=== PATIENT | male | born 1985 | race Caucasian/White ===

== ENCOUNTER 2018-08-24 09:45 | Emergency (ER) | payer MEDICAID, SELFPAY ==
[2018-08-24 09:47] VITALS: BP 159/94; PULSE 106; RESP 17; TEMP 36.6; O2SAT 93; BMI 61.3
--- NOTE | 2018-08-24 10:03 | ED.DCSUM_ITS ---
- ER Visit Summary Date of Service: 08/24/18 Chief Complaint: [] Left lateral lower leg pain for 4 days History of Present Illness: The patient is a 32 M [] indicates he really has no past history other than asthma that is well controlled he indicates he basically has had a pain to the left lateral leg he points just above the left lateral malleolus, this pain is worse when he wakes in the morning gets better actually as he moves around during the day he has had no trauma no swelling no numbness weakness or paresthesias he has no upper extremity pain, specifically he has no knee thigh hip pain no back pain he did not injure himself anyway he has not been ill in any way. Today he went to a local urgent care center he pointed to the area just above his left lateral malleolus complain of discomfort here by his history of the caretakers there told him to come to the emergency department to get an ultrasound for DVT, the patient reports no history of DVT he denies any swelling but rather just a focal pain to this area Physical Examination: [] 159/80 General, no distress resting comfortably HEENT is generally unremarkable The neck is supple no adenopathy Cardiovascular, regular rate and rhythm Lungs, clear bilateral Abdomen, soft nontender Extremities, no clubbing cyanosis or edema, the left lower leg he has no pain over the calf no pain over the alcocer or tib-fib the left ankle is unremarkable for range of motion the foot unremarkable there is normal pulsation normal cap refill skin is intact he complains of pain about 2 or 3 cm above the left lateral malleolus this area is soft there is no crepitance subcu air mass or signs of infection or anything else acute he has no pain medially over the veins and he has no history of DVT or trauma Neurologic, awake alert answering questions appropriately moving all 4 extremities Test Results: [] Emergency Department Course and Treatment: [] Explained to the patient the exact etiology of the above is unclear the DVT in that part of his body with no prior history would be uncommon and unlikely additionally the duplex techs are not available at this time, I also discussed x-ray but he did not wish to pursue that, at this time given all the above he will be given a requisition for outpatient duplex scan to be done tomorrow and to follow-up with his family doctor return for change in symptoms Treatment Plan: [] Disposition: [] Home stable Impression: [] Left lateral lower tib-fib pain etiology unclear This note was generated with [employer] dictation software. It may contain incorrect words, spelling, and punctuation that were not noted in review of the chart prior to signing ED Disposition - Plan for ED Patient: Chief Complaint: Lower Extremity Injury Referrals: Evin Ann MD [Primary Care Provider] -
--- NOTE | 2018-08-24 10:03 | ED.DEP ---
ED Disposition - Plan for ED Patient: Chief Complaint: Lower Extremity Injury Instructions: ED Contusion Lower Ext Referrals: Evin Ann MD [Primary Care Provider] - Additional Instructions: Please follow-up as an outpatient for duplex scanning call for time follow-up with your family doctor tomorrow or the next day
[2018-08-24 10:14] VITALS: BP 161/97; PULSE 103; RESP 18; O2SAT 93
[2018-08-24 10:17] VITALS: BP 161/97; PULSE 103; RESP 18
== END 2018-08-24 10:19 | disposition home or self-care (01) ==
LOC: ED 10:01
PROVIDERS: Emergency Provider Emergency Medicine; Family Provider Family Medicine; PCP Family Medicine
DX: M79.662 Pain in left lower leg (principal); J45.909 Unspecified asthma, uncomplicated
CPT/HCPCS: 99282

== ENCOUNTER → 2018-09-02 12:00 | Outpatient (CLI) | payer MEDICAID, SELFPAY ==
[2018-08-24 09:47] VITALS: BMI 61.3
--- NOTE | 2018-09-02 12:04 | VDLE_ITS ---
Reason For Study: LEG PAIN Procedure LEFT Exam performed in department. GSV is normal. CFV is compressible, spontaneous, phasic, competent, and demonstrates normal augmentation. FV is compressible, spontaneous, phasic, competent and demonstrates normal augmentation. POP V is compressible, spontaneous, phasic, competent and demonstrates normal augmentation. T/P Trunk is compressible. PTV is compressible. LT PerV is compressible. <> Interpretation Summary Deep veins of the left lower extremity are patent and compressible segmentally. There is no evidence of left lower extremity deep vein thrombosis. Valvular competence appears intact within the proximal deep venous system on the left . The left greater saphenous vein appears patent and compressible segmentally. Ordering Physician: Senait Aryaa Referring Physician: MD Marissa Evin Performed By: Lalita Aaron RVT
--- OUTSIDE RECORDS SUMMARY | 2018-10-15 03:42 | XMS RPT_ITS ---
:1985 Author Organization OH[facility] Care Team Providers Name Role Phone MARYBETH DURAN Attending Unavailable MARYBETH DURAN Referring Unavailable JUANITA NEGRON (MARBLE CUTTER OPERATOR) Attending Unavailable MARYBETH DURAN Referring Unavailable GOLDY VINCENT Referring Unavailable Kelli Araya Attending Unavailable Marybeth Duran Primary Care Unavailable Kelli Araya Attending Unavailable Kelli Araya Referring Unavailable Marybeth Duran Primary Care Unavailable PROBLEMS PROBLEMS DATE TYPE CONDITION / CODE ATTENDING STATUS SOURCE 07/30/2018 Active Other intermediate NA Active [facility] (current) drug [facility] [place] therapy / Repository Z79.899(ICD-10) 01/12/2013 Active Essential NA Active [facility] (primary) [place] hypertension / Repository I10(ICD-10) PROCEDURES PROCEDURES No Procedure Records FoundRESULTS RESULTS VENOUS DUPLEX LOWER Observed: 09/04/2018 Status: F Source: [place] EXTREMITY 1:05 PM [facility] REPOSITORY [facility] Cardiovascular Services [address] [place] [address] Venous Duplex US, Unilateral 09/02/18 1206 MR#: [id number] Acct: [id number] Name: TATA CARDENAS Rep #: [id number] : 1985 32 From: Casey Villalobos MD Attending Dr: MD Araya Sharabeel Status: REG CLI Ordering Dr: Kelli Araya MD Date: 09/02/18 Location: CVS Sex: M C Admitted: Reason For Study: LEG PAIN Procedure LEFT Exam performed in department. GSV is normal. CFV is compressible, spontaneous, phasic, competent, and demonstrates normal augmentation. FV is compressible, spontaneous, phasic, competent and demonstrates normal augmentation. POP V is compressible, spontaneous, phasic, competent and demonstrates normal augmentation. T/P Trunk is compressible. PTV is compressible. LT PerV is compressible. <> Interpretation Summary Deep veins of the left lower extremity are patent and compressible segmentally. There is no evidence of left lower extremity deep vein thrombosis. Valvular competence appears intact within the proximal deep venous system on the left . The left greater saphenous vein appears patent and compressible segmentally. Ordering Physician: Senait Araya Referring Physician: MD Marybeth Duran Performed By: Lalita Aaron RVT 09/04/18 1304 Date Casey Villalobos MD CC: MD Senait Araya; Marybeth Duran MD Date Dictated: 09/02/18 1206 Date Transcribed: 09/04/18 1304 Gas Engine Performance Engineer: Signed EMERGENCY DEPARTMENT Observed: 08/24/2018 Status: F Source: [place] SUMMARY 3:44 PM [facility] REPOSITORY [facility] Medical Records Department [address] [place] [address] Emergency Department Summary 08/24/18 1001 MR#: [id number] Acct: [id number] Name: TATA CARDENAS Rep #: [id number] : 1985 32 From: Kelli Araya MD PCP: Marybeth Duran MD Status: DEP ER - ER Visit Summary Date of Service: 08/24/18 Chief Complaint: [] Left lateral lower leg pain for 4 days History of Present Illness: The patient is a 32 M [] indicates he really has no past history other than asthma that is well controlled he indicates he basically has had a pain to the left lateral leg he points just above the left lateral malleolus, this pain is worse when he wakes in the morning gets better actually as he moves around during the day he has had no trauma no swelling no numbness weakness or paresthesias he has no upper extremity pain, specifically he has no knee thigh hip pain no back pain he did not injure himself anyway he has not been ill in any way. Today he went to a local urgent care center he pointed to the area just above his left lateral malleolus complain of discomfort here by his history of the caretakers there told him to come to the emergency department to get an ultrasound for DVT, the patient reports no history of DVT he denies any swelling but rather just a focal pain to this area Physical Examination: [] 159/80 General, no distress resting comfortably HEENT is generally unremarkable The neck is supple no adenopathy Cardiovascular, regular rate and rhythm Lungs, clear bilateral Abdomen, soft nontender Extremities, no clubbing cyanosis or edema, the left lower leg he has no pain over the calf no pain over the alcocer or tib-fib the left ankle is unremarkable for range of motion the foot unremarkable there is normal pulsation normal cap refill skin is intact he complains of pain about 2 or 3 cm above the left lateral malleolus this area is soft there is no crepitance subcu air mass or signs of infection or anything else acute he has no pain medially over the veins and he has no history of DVT or trauma Neurologic, awake alert answering questions appropriately moving all 4 extremities Test Results: [] Emergency Department Course and Treatment: [] Explained to the patient the exact etiology of the above is unclear the DVT in that part of his body with no prior history would be uncommon and unlikely additionally the duplex techs are not available at this time, I also discussed x-ray but he did not wish to pursue that, at this time given all the above he will be given a requisition for outpatient duplex scan to be done tomorrow and to follow-up with his family doctor return for change in symptoms Treatment Plan: [] Disposition: [] Home stable Impression: [] Left lateral lower tib-fib pain etiology unclear This note was generated with [employer]Vista dictation software. It may contain incorrect words, spelling, and punctuation that were not noted in review of the chart prior to signing ED Disposition - Plan for ED Patient: Chief Complaint: Lower Extremity Injury Referrals: Marybeth Duran MD [Primary Care Provider] - What to do if you have Problems For any increased pain, shortness of breath, bleeding, nausea or vomiting, chest pain, or any unexpected problems, contact your Primary Care Provider. Call [facility] ([phone]) or report to the closest Emergency Room. Call 911 if necessary. 08/24/18 1544 <Electronically signed by Kelli Araya MD> Date Kelli Araya MD Cosigner Signature (If Indicated): Date CC: Marybeth Duran MD DISCHARGE INSTRUCTION Observed: 08/24/2018 Status: F Source: [place] 10:04 AM [facility] REPOSITORY [facility] Medical Records Department [address] [place] [address] Discharge Instruction 08/24/18 1003 MR#: [id number] Acct: [id number] Name: TATA CARDENAS Rep #: [id number] : 1985 32 From: Kelli Araya MD PCP: Marybeth Duran MD Status: REG ER ED Disposition - Plan for ED Patient: Chief Complaint: Lower Extremity Injury Instructions: ED Contusion Lower Ext Referrals: Marybeth Duran MD [Primary Care Provider] - Additional Instructions: Please follow-up as an outpatient for duplex scanning call for time follow-up with your family doctor tomorrow or the next day What to do if you have Problems For any increased pain, shortness of breath, bleeding, nausea or vomiting, chest pain, or any unexpected problems, contact your Primary Care Provider. Call [facility] ([phone]) or report to the closest Emergency Room. Call 911 if necessary. 08/24/18 1004 <Electronically signed by Kelli Araya MD> Date Kelli Araya MD Cosigner Signature (If Indicated): Date CC: Marybeth Duran MD CNCO Observed: 07/31/2018 Status: COMPLETED Source: [place] 12:00 AM [facility] REPOSITORY Letter Text [address] [address] July 31, 2018 Tata Cardenas [address] [facility] [address] [place] [address] Dear Sabrina Cardenas, Attempts have been made to reach you by phone, no VM has been set up. Below is a message from the provider concerning your lab results and instructions Please inform patient that his glucose, [place] lites and kidney function were normal. Continue with follow-up in 6 months with labs prior. ? Juanita Negron APRN.MARBLE CUTTER OPERATOR ? Sincerely, [facility] BASIC METABOLIC PANL Collected: 07/30/2018 Status: F Source: [place] 1:48 PM [facility] REPOSITORY TYPE CODE TESTS RESULT OUT OF REFERENCE UNITS RANGE LAB GLU 74-99 mg/dL Glucose 86 Result Comment: The [place] Diabetes Association (ADA) provides guidance for cutoff values for fasting glucose and random glucose. The ADA defines fasting as no caloric intake for at least 8 hours. Fas ting plasma glucose results between 100 to 125 mg/dL indicate increased risk for diabetes (prediabetes). Fasting plasma glucose results greater than or equal to 126 mg/dL meet the criteria for diagnosis of diabetes. In the absence of unequivocal hyperglycemia, results should be confirmed by repeat testing. In a patient with classic symptoms of hyperglycemia or hyperglycemic crisis, random plasma glucose results greater than or equal to 200 mg/dL meet the criteria for diagnosis of diabetes. Reference: Standards of Medical Care in Diabetes 2016, [place] [employer] Association. Diabetes Care. 2016.39(Suppl 1). LAB BUN 9-24 mg/dL BUN 11 LAB CRET 0.73-1.22 mg/dL Creatinine 0.79 LAB NA 136-144 mmol/L Sodium 138 LAB K 3.7-5.1 mmol/L Potassium 3.7 LAB CL 97-105 mmol/L Chloride 98 LAB CO2 22-30 mmol/L CO2 26 LAB AGAP 9-18 mmol/L Anion Gap 14 LAB CA 8.5-10.2 mg/dL Calcium, Total 8.6 LAB GFRAA eGFR- Amer. >60 LAB GFRNAA . eGFR-All Other Races >60 Result Comment: eGFR (Estimated GFR) Units of measure: mL/min/1.73 meters squared eGFR is derived from the reexpressed MDRD Study equation using the following parameters: serum creatinine, age, gender and race. The creatinine assay has been calibrated to be traceable to IDMS. An eGFR <60 mL/min/1.73m2 for >3 months is consistent with chronic kidney disease. Refer to KDOQI guidelines for clinical interpretation. In patients with unstable renal function, e.g. those with acute kidney injury, the eGFR may not accurately reflect actual GFR. Performed By: #### BMP #### [facility] [address], [place] [address] PROGRESS Observed: 07/30/2018 Status: COMPLETED Source: [place] 1:16 PM [facility] REPOSITORY HNO ID: [id number] Author: Juanita Negron Service: (none) Author Type: Nurse Practitioner Type: Progress Notes Filed: 07/30/2018 1:41 PM Note Text: Chief Complaint Patient presents with: 6 Month Exam: headache a few days ago - throbbing - right side above eye - last ing 2 or 3 minutes the first time - but most th etime a shooting pain lasting only a few seconds HPI Tata Cardenas is a 32 year old male who presents here today for Chronic Medical Conditions and Acute Complaints. Patient presents the office today for follow-up on dysthymia and hypertension. Had a headache a few days ago but it went away. does not have any symptoms of a headache at this time. States that his mother and other family members have had history of a brain aneurysm in the past. States that this makes him nervous at times. States that the headache lasted just a few minutes and then went away. Had no nausea, photophobia, phonophobia during this episode. Did not take any medication for it because it went away so quickly. HTN: Patient is compliant with meds Yes Monitors bp at home: No. He is interested in a a blood pressure cuff for home readings. Denies side effects: Yes. Chest pain: No. Dyspnea: No. Edema: No. Palpitations: No. Syncope: No. Headache: No. Dizziness: No. Gets exercise at work. Does not really watch his diet. States that he works at [employer]. Asthma: Taking inhalers as prescribed. Has had to increase his use of albuterol recently with the cold air starting. Also takes the Claritin for allergies. Depression: Taking Prozac 40 mg daily. States that it is for depression. Controls his anxiety also. Keeps his temper controlled at work. Has chronic area on his right elbow that he applies kenalog cream to it. States that it will get better and then get worse. Past medical history, appointments, medications, allergies reviewed. Previous Medical History PAST MEDICAL HISTORY Diagnosis Date - Allergic rhinitis, cause unspecified Allergic rhinitis - Dysthymic disorder Depression (non-psychotic) - Unspecified asthma(493.90) Previous Surgical History PAST SURGICAL HISTORY Procedure Laterality Date - PAST SURGICAL HISTORY OF ingrown toenail Family History FAMILY HISTORY Problem Relation Age of Onset - Diabetes Maternal Grandmother - Alcohol/Drug Mother - Heart Mother 50 CHF - COPD Mother - Hypertension Maternal Grandfather Patient Allergies ALLERGIES Allergen Reactions - Erythromycin GI Upset - Lisinopril Other: See Comments Altered taste - Naproxen (Bulk) Other: See Comments causes nose bleeds Current Medications Current Outpatient Prescriptions on File Prior to Visit: hydroCHLOROthiazide (HYDRODIURIL, ESIDRIX) 25 mg tablet Take 1 tablet by mouth once daily. For BP FLUoxetine HCl (PROZAC) 40 mg capsule Take 1 capsule by mouth once daily. losartan (COZAAR) 50 mg tablet Take 1 tablet by mouth once daily. For BP amLODIPine (NORVASC) 10 mg tablet Take 1 tablet by mouth once daily. For BP montelukast (SINGULAIR) 10 mg tablet Take 1 tablet by mouth daily at bedtime. loratadine (CLARITIN) 10 mg tablet Take 1 tablet by mouth once daily. albuterol HFA (VENTOLIN HFA) 90 mcg/actuation inhaler Inhale 2 Puffs as instructed every 4 hours as needed for Wheezing/Shortness of Breath. BREO ELLIPTA 100-25 mcg/dose inhaler Inhale 1 Inhalation as instructed once daily. Blood Pressure Test Kit-Large (QUICK RESPONSE BP MONITOR) kit Large adult cuff. (I10) Essential hypertension, benign triamcinolone acetonide (KENALOG) 0.1 % cream Apply 1 application to affected area twice daily. No current facility-administered medications on file prior to visit. Social History Social History Marital status: Single Spouse name: Years of education: Number of children: Social History Main Topics Smoking status: Never Smoker Smokeless tobacco: Never Used Alcohol use: No Drug use: No REVIEW OF SYSTEMS: as above ? Reviewed relevant PMHx, PSHx, Social Hx, current medications and allergies. EXAM: BP 124/78 Pulse 78 Temp 36.3 ?C (97.4 ?F) (Tympanic) Wt (!) 194.6 kg (429 lb) SpO2 98% BMI 63.35 kg/m? General Appearance: Well appearing, alert, in no acute distress, well-hydrated, well nourished. and Morbidly obese. Skin: right elbow has a small approximate 1 x 1 cm area of scaly, dry skin with some redness. Head: Normocephalic, no masses, lesions, tenderness or abnormalities. Eyes: Anicteric sclera. Pupils are equally round and reactive to light. Extraocular movements are intact. . Ears: External ears normal, canals clear. Nose/Sinuses: Nares normal, septum midline, mucosa normal, no drainage or sinus tenderness. Oropharynx: Lips, mucosa, and tongue normal, teeth and gums normal, oropharynx normal. Lungs: Lungs clear to auscultation. No wheezing, rhonchi, rales. Heart: RRR without murmur, gallop, or rubs. No ectopy. Extremities: No deformities, edema.. Neurologic: Gait normal. Reflexes normal and symmetric. Sensation grossly intact.. Health Maintenance List BP CONTROLLED (<130/80) due on 2001 DTAP,TDAP,TD(1 - Tdap) due on 2002 STEROID INHALER ADHERENCE due on 08/07/2018 ANNUAL PCP TEAM CHRONIC DISEASE VISIT due on 01/28/2019 INFLUENZA Completed Data reviewed Component Latest Ref Rng AND Units 12/01/2015 01/28/2018 Protein, Total 6.3 - 8.0 g/dL 7.5 Albumin 3.9 - 4.9 g/dL 4.0 Calcium 8.5 - 10.2 mg/dL 8.5 9.1 Bilirubin, Total 0.2 - 1.3 mg/dL 0.6 Alkaline Phosphatase 36 - 108 U/L 102 AST 14 - 40 U/L 21 Glucose 74 - 99 mg/dL 95 82 BUN 9 - 24 mg/dL 13 9 Creatinine 0.73 - 1.22 mg/dL 0.80 0.88 Sodium 136 - 144 mmol/L 141 141 Potassium 3.7 - 5.1 mmol/L 3.9 4.1 Chloride 97 - 105 mmol/L 103 102 CO2 22 - 30 mmol/L 27 23 Anion Gap 9 - 18 mmol/L 11 16 ALT 10 - 54 U/L 18 eGFR- >60 >60 eGFR-All Other Races . >60 >60 Cholesterol, Total <200 mg/dL 165 Triglyceride <150 mg/dL 163 (H) HDL Cholesterol >39 mg/dL 29 (L) LDL Cholesterol <100 mg/dL 103 (H) Non HDL Cholesterol <130 mg/dL 136 (H) Fasting Time hrs 12 VLDL Cholesterol <30 mg/dL 33 (H) TC:HDL Ratio <5.10 5.69 (H) LDL:HDL Ratio <2.54 3.55 (H) ASSESSMENT/PLAN: 1. Essential hypertension, benign - ICD9: 401.1, ICD10: I10 (primary diagnosis) - good control - Continue current medication(s) - Recommended regular aerobic exercise. - Recommend home blood pressure monitoring, to bring results in on next visit - Goal of BP <130/80 - BLOOD PRESSURE TEST KIT-LARGE CUFF - BASIC METABOLIC PNL 2. Chronic depression - ICD9: 311, ICD10: F32.9 - stable, continue fluoxetine 40 mg daily. 3. Chronic obstructive airway disease with asthma (HCC) - ICD9: 493.20, ICD10: J44.9 - stable continue0 with current inhalers. 4. Eczema, unspecified type - ICD9: 692.9, ICD10: L30.9 - continue with trazodone cream, advised use of lotions after showers for hydration of skin - TRIAMCINOLONE ACETONIDE 0.1 % TOPICAL CREAM 5. Nonintractable episodic headache, unspecified headache type - ICD9: 784.0, ICD10: R51 - provided reassurance that this headache is typical and not associated with an aneurysm. Patient's neurological exam was normal today in the office. Advised adequate hydration, Tylenol ibuprofen for symptoms. Discussed need to follow-up closely if severity or frequency increases. BMP today, follow-up in 6 months, follow-up sooner if needed. ANGEL GomezOV Observed: 07/30/2018 Status: COMPLETED Source: [place] 1:00 PM [facility] REPOSITORY Office Visit (FAMPWS) TATA CARDENAS ([id number]) 1985 M IPA Date Time Provider Department 07/30/18 1:00 PM JUANITA NEGRON ([facility] During your visit today, we recorded the following information about you: Temperature Pulse Blood pressure Weight 97.4 degrees 78/minute 124/78 194.6 kg Juanita Negron APRN.CNP 07/30/2018 1:41 PM Signed Chief Complaint Patient presents with: 6 Month Exam: headache a few days ago - throbbing - right side above eye - last ing 2 or 3 minutes the first time - but most th etime a shooting pain lasting only a few seconds HPI Tata Cardenas is a 32 year old male who presents here today for Chronic Medical Conditions and Acute Complaints. Patient presents the office today for follow-up on dysthymia and hypertension. Had a headache a few days ago but it went away. does not have any symptoms of a headache at this time. States that his mother and other family members have had history of a brain aneurysm in the past. States that this makes him nervous at times. States that the headache lasted just a few minutes and then went away. Had no nausea, photophobia, phonophobia during this episode. Did not take any medication for it because it went away so quickly. HTN: Patient is compliant with meds Yes Monitors bp at home: No. He is interested in a a blood pressure cuff for home readings. Denies side effects: Yes. Chest pain: No. Dyspnea: No. Edema: No. Palpitations: No. Syncope: No. Headache: No. Dizziness: No. Gets exercise at work. Does not really watch his diet. States that he works at [employer]. Asthma: Taking inhalers as prescribed. Has had to increase his use of albuterol recently with the cold air starting. Also takes the Claritin for allergies. Depression: Taking Prozac 40 mg daily. States that it is for depression. Controls his anxiety also. Keeps his temper controlled at work. Has chronic area on his right elbow that he applies kenalog cream to it. States that it will get better and then get worse. Past medical history, appointments, medications, allergies reviewed. Previous Medical History PAST MEDICAL HISTORY Diagnosis Date - Allergic rhinitis, cause unspecified Allergic rhinitis - Dysthymic disorder Depression (non-psychotic) - Unspecified asthma(493.90) Previous Surgical History PAST SURGICAL HISTORY Procedure Laterality Date - PAST SURGICAL HISTORY OF ingrown toenail Family History FAMILY HISTORY Problem Relation Age of Onset - Diabetes Maternal Grandmother - Alcohol/Drug Mother - Heart Mother 50 CHF - COPD Mother - Hypertension Maternal Grandfather Patient Allergies ALLERGIES Allergen Reactions - Erythromycin GI Upset - Lisinopril Other: See Comments Altered taste - Naproxen (Bulk) Other: See Comments causes nose bleeds Current Medications Current Outpatient Prescriptions on File Prior to Visit: hydroCHLOROthiazide (HYDRODIURIL, ESIDRIX) 25 mg tablet Take 1 tablet by mouth once daily. For BP FLUoxetine HCl (PROZAC) 40 mg capsule Take 1 capsule by mouth once daily. losartan (COZAAR) 50 mg tablet Take 1 tablet by mouth once daily. For BP amLODIPine (NORVASC) 10 mg tablet Take 1 tablet by mouth once daily. For BP montelukast (SINGULAIR) 10 mg tablet Take 1 tablet by mouth daily at bedtime. loratadine (CLARITIN) 10 mg tablet Take 1 tablet by mouth once daily. albuterol HFA (VENTOLIN HFA) 90 mcg/actuation inhaler Inhale 2 Puffs as instructed every 4 hours as needed for Wheezing/Shortness of Breath. BREO ELLIPTA 100-25 mcg/dose inhaler Inhale 1 Inhalation as instructed once daily. Blood Pressure Test Kit-Large (QUICK RESPONSE BP MONITOR) kit Large adult cuff. (I10) Essential hypertension, benign triamcinolone acetonide (KENALOG) 0.1 % cream Apply 1 application to affected area twice daily. No current facility-administered medications on file prior to visit. Social History Social History Marital status: Single Spouse name: Years of education: Number of children: Social History Main Topics Smoking status: Never Smoker Smokeless tobacco: Never Used Alcohol use: No Drug use: No REVIEW OF SYSTEMS: as above ? Reviewed relevant PMHx, PSHx, Social Hx, current medications and allergies. EXAM: BP 124/78 Pulse 78 Temp 36.3 ?C (97.4 ?F) (Tympanic) Wt (!) 194.6 kg (429 lb) SpO2 98% BMI 63.35 kg/m? General Appearance: Well appearing, alert, in no acute distress, well-hydrated, well nourished. and Morbidly obese. Skin: right elbow has a small approximate 1 x 1 cm area of scaly, dry skin with some redness. Head: Normocephalic, no masses, lesions, tenderness or abnormalities. Eyes: Anicteric sclera. Pupils are equally round and reactive to light. Extraocular movements are intact. . Ears: External ears normal, canals clear. Nose/Sinuses: Nares normal, septum midline, mucosa normal, no drainage or sinus tenderness. Oropharynx: Lips, mucosa, and tongue normal, teeth and gums normal, oropharynx normal. Lungs: Lungs clear to auscultation. No wheezing, rhonchi, rales. Heart: RRR without murmur, gallop, or rubs. No ectopy. Extremities: No deformities, edema.. Neurologic: Gait normal. Reflexes normal and symmetric. Sensation grossly intact.. Health Maintenance List BP CONTROLLED (<130/80) due on 2001 DTAP,TDAP,TD(1 - Tdap) due on 2002 STEROID INHALER ADHERENCE due on 08/07/2018 ANNUAL PCP TEAM CHRONIC DISEASE VISIT due on 01/28/2019 INFLUENZA Completed Data reviewed Component Latest Ref Rng AND Units 12/01/2015 01/28/2018 Protein, Total 6.3 - 8.0 g/dL 7.5 Albumin 3.9 - 4.9 g/dL 4.0 Calcium 8.5 - 10.2 mg/dL 8.5 9.1 Bilirubin, Total 0.2 - 1.3 mg/dL 0.6 Alkaline Phosphatase 36 - 108 U/L 102 AST 14 - 40 U/L 21 Glucose 74 - 99 mg/dL 95 82 BUN 9 - 24 mg/dL 13 9 Creatinine 0.73 - 1.22 mg/dL 0.80 0.88 Sodium 136 - 144 mmol/L 141 141 Potassium 3.7 - 5.1 mmol/L 3.9 4.1 Chloride 97 - 105 mmol/L 103 102 CO2 22 - 30 mmol/L 27 23 Anion Gap 9 - 18 mmol/L 11 16 ALT 10 - 54 U/L 18 eGFR- >60 >60 eGFR-All Other Races . >60 >60 Cholesterol, Total <200 mg/dL 165 Triglyceride <150 mg/dL 163 (H) HDL Cholesterol >39 mg/dL 29 (L) LDL Cholesterol <100 mg/dL 103 (H) Non HDL Cholesterol <130 mg/dL 136 (H) Fasting Time hrs 12 VLDL Cholesterol <30 mg/dL 33 (H) TC:HDL Ratio <5.10 5.69 (H) LDL:HDL Ratio <2.54 3.55 (H) ASSESSMENT/PLAN: 1. Essential hypertension, benign - ICD9: 401.1, ICD10: I10 (primary diagnosis) - good control - Continue current medication(s) - Recommended regular aerobic exercise. - Recommend home blood pressure monitoring, to bring results in on next visit - Goal of BP <130/80 - BLOOD PRESSURE TEST KIT-LARGE CUFF - BASIC METABOLIC PNL 2. Chronic depression - ICD9: 311, ICD10: F32.9 - stable, continue fluoxetine 40 mg daily. 3. Chronic obstructive airway disease with asthma (HCC) - ICD9: 493.20, ICD10: J44.9 - stable continue0 with current inhalers. 4. Eczema, unspecified type - ICD9: 692.9, ICD10: L30.9 - continue with trazodone cream, advised use of lotions after showers for hydration of skin - TRIAMCINOLONE ACETONIDE 0.1 % TOPICAL CREAM 5. Nonintractable episodic headache, unspecified headache type - ICD9: 784.0, ICD10: R51 - provided reassurance that this headache is typical and not associated with an aneurysm. Patient's neurological exam was normal today in the office. Advised adequate hydration, Tylenol ibuprofen for symptoms. Discussed need to follow-up closely if severity or frequency increases. BMP today, follow-up in 6 months, follow-up sooner if needed. Juanita Negron APRN.MARBLE CUTTER OPERATOR Referring Provider: MARYBETH DURAN [[id number]] Allergies As of Date: 07/30/2018 Noted Allergy Reaction ERYTHROMYCIN 2006 8 - GI Upset LISINOPRIL 06/28/2014 14 - Other: See Comments Comments: Altered taste NAPROXEN (BULK) 10/17/2011 14 - Other: See Comments Comments: causes nose bleeds Date Reviewed: 07/30/2018 Reviewed by: Alondra Callejas Collection Systems Technician - Fully Assessed Reason for Visit: 6 Month Exam [189] Cmt: headache a few days ago - throbbing - right side above eye - last ing 2 or 3 minutes the first time - but most th etime a shooting pain lasting only a few seconds Reason For Visit History Recorded Primary Visit Diagnosis:Essential hypertension, benign [I10] Other Visit Diagnoses:Chronic depression [F32.9] Chronic obstructive airway disease with asthma (HCC) [J44.9] Eczema, unspecified type [L30.9] Nonintractable episodic headache, unspecified headache type [R51] Order(s):Blood Pressure Test Kit-Large (QUICK RESPONSE BP MONITOR) kitLarge adult cuff. (I10) Essential hypertension, benignDisp: 1 KitRfl: 0 triamcinolone acetonide (KENALOG) 0.1 % creamApply 1 application to affected area twice daily.Disp: 30 gRfl: 3 BASIC METABOLIC PNL [SQBMP] Order #: [id number] FUTURE Prescriptions as of 07/30/2018 Sig: BLOOD PRESSURE TEST KIT-LARGE* Large adult cuff. (I10) Esse* TRIAMCINOLONE ACETONIDE 0.1 %* Apply 1 application to affect* HYDROCHLOROTHIAZIDE 25 MG TAB* Take 1 tablet by mouth once d* FLUOXETINE 40 MG CAPSULE Take 1 capsule by mouth once * LOSARTAN 50 MG TABLET Take 1 tablet by mouth once d* AMLODIPINE 10 MG TABLET Take 1 tablet by mouth once d* MONTELUKAST 10 MG TABLET Take 1 tablet by mouth daily * LORATADINE 10 MG TABLET Take 1 tablet by mouth once d* ALBUTEROL SULFATE HFA 90 MCG/* Inhale 2 Puffs as instructed * BREO ELLIPTA 100 MCG-25 MCG/D* Inhale 1 Inhalation as instru* Problem List As Of Date 07/30/2018 Noted Resolved Chronic depression [F32.9] INVALID FOR* Chronic obstructive airway disease with asthma *INVALID FOR* ALLERGIC RHINITIS NOS [J30.9] INVALID FOR* Essential hypertension, benign [I10] INVALID FOR* Morbid obesity [E66.01] INVALID FOR* Prescriptions ordered this encounter Disp Refills Start End BLOOD PRESSURE TEST KIT-LARGE CUFF 1 Kit 0 07/30/2018 Class: Print RX Sig: Large adult cuff. (I10) Essential hypertension, benign TRIAMCINOLONE ACETONIDE 0.1 % TOPICA* 30 g 3 07/30/2018 Route: TOPICAL Sig: Apply 1 application to affected area twice daily. Medications Discontinued During This Encounter Blood Pressure Test Kit-Large (QUICK* 1 Kit 0 01/28/2018 07/30/2018 Class: Print RX Sig: Large adult cuff. (I10) Essential hypertension, benign Disc: Reason for discontinue is not on file. triamcinolone acetonide (KENALOG) 0.* 30 g 3 05/21/2016 07/30/2018 Route: TOPICAL Sig: Apply 1 application to affected area twice daily. Disc: Reason for discontinue is not on file. Disposition: Return in about 6 months (around 01/28/2019) for HTN, Depression f/u. Follow-up and Disposition History Recorded Encounter Status:Closed by JUANITA NEGRON CNP on 07/30/18 COMP METABOLIC PANEL Collected: 01/28/2018 Status: F Source: [place] 4:28 PM [facility] REPOS[facility] TYPE CODE TESTS RESULT OUT OF REFERENCE UNITS RANGE LAB TP 6.3-8.0 g/dL Protein, Total 7.5 LAB ALB 3.9-4.9 g/dL Albumin 4.0 LAB CA 8.5-10.2 mg/dL Calcium, Total 9.1 LAB TBIL 0.2-1.3 mg/dL Bilirubin, Total 0.6 LAB ALKP 36-108 U/L Alkaline Phosphatase 102 LAB AST 14-40 U/L AST 21 LAB GLU 74-99 mg/dL Glucose 82 Result Comment: The [place] Diabetes Association (ADA) provides guidance for cutoff values for fasting glucose and random glucose. The ADA defines fasting as no caloric intake for at least 8 hours. Fas ting plasma glucose results between 100 to 125 mg/dL indicate increased risk for diabetes (prediabetes). Fasting plasma glucose results greater than or equal to 126 mg/dL meet the criteria for diagnosis of diabetes. In the absence of unequivocal hyperglycemia, results should be confirmed by repeat testing. In a patient with classic symptoms of hyperglycemia or hyperglycemic crisis, random plasma glucose results greater than or equal to 200 mg/dL meet the criteria for diagnosis of diabetes. Reference: Standards of Medical Care in Diabetes 2016, [place] [employer] Association. Diabetes Care. 2016.39(Suppl 1). LAB BUN 9-24 mg/dL BUN 9 LAB CRET 0.73-1.22 mg/dL Creatinine 0.88 LAB NA 136-144 mmol/L Sodium 141 LAB K 3.7-5.1 mmol/L Potassium 4.1 LAB CL 97-105 mmol/L Chloride 102 LAB CO2 22-30 mmol/L CO2 23 LAB AGAP 9-18 mmol/L Anion Gap 16 LAB ALT 10-54 U/L ALT 18 LAB GFRAA eGFR- Amer. >60 LAB GFRNAA . eGFR-All Other Races >60 Result Comment: eGFR (Estimated GFR) Units of measure: mL/min/1.73 meters squared eGFR is derived from the reexpressed MDRD Study equation using the following parameters: serum creatinine, age, gender and race. The creatinine assay has been calibrated to be traceable to IDMS. An eGFR <60 mL/min/1.73m2 for >3 months is consistent with chronic kidney disease. Refer to KDOQI guidelines for clinical interpretation. In patients with unstable renal function, e.g. those with acute kidney injury, the eGFR may not accurately reflect actual GFR. Performed By: #### CMP, LIPB #### [facility] [address] [address] LIPID PANEL, BASIC Collected: 01/28/2018 Status: F Source: [place] 4:28 PM [facility] REPOSITORY TYPE CODE TESTS RESULT OUT OF REFERENCE UNITS RANGE LAB CHOL <200 mg/dL Cholesterol 165 Result Comment: <200 mg/dL, Desirable 200-239 mg/dL, Borderline high >239 mg/dL, High LAB TRIGLY <150 mg/dL Triglyceride High 163 Result Comment: <150 mg/dL, Normal 150-199 mg/dL, Borderline high 200-499 mg/dL, High >499 mg/dL, Very high LAB HDL >39 mg/dL HDL-Cholesterol Low 29 Result Comment: 40-59 mg/dL, Acceptable >59 mg/dL, High: Negative risk factor for coronary heart disease <40 mg/dL, Low: Positive risk factor for coronary heart disease LAB LDL <100 mg/dL LDL-Cholesterol High 103 Result Comment: <100 mg/dL, Optimal 100-129 mg/dL, Near optimal/above optimal 130-159 mg/dL, Borderline high 160-189 mg/dL, High >189 mg/dL, Very high Secondary prevention optimal LDL Cholesterol levels are recommended to be < 70 mg/dL LAB NONHDL <130 mg/dL Non HDL High Cholesterol 136 Result Comment: <130 mg/dL, Optimal 130-159 mg/dL, Near optimal/above optimal 160-189 mg/dL, Borderline high 190-219 mg/dL, High >219 mg/dL, Very high Secondary prevention optimal non HDL Cholesterol levels are recommended to be < 100 mg/dL LAB FT hrs Fasting Time 12 LAB VLDL <30 mg/dL High VLDL Cholesterol 33 LAB TCHDL <5.10 High TC:HDL Ratio 5.69 LAB LDLHDL <2.54 High LDL:HDL Ratio 3.55 Result Comment: Reference: 1. National Cholesterol Education Program ATP III Guideline At-A-Glance Quick Desk Reference: National Heart, Lung, and Blood [place]. National Institutes of Health. 2001: NIH Publication No. 01-3305. 2. An International Atherosclerosis Society position paper: global recommendations for the management of dyslipidemia: executive summary, Atherosclerosis. 2014: 232(2):410-413. Performed By: #### CMP, LIPB #### [facility] [address] [place], [place] [address] CNOV Observed: 01/28/2018 Status: COMPLETED Source: [place] 4:20 PM [facility] REPOSITORY Office Visit (FAMPWS) TATA CARDENAS ([id number]) 1985 M IPA Date Time Provider Department 01/28/18 4:20 PM MARYBETH DURAN FAMPWS During your visit today, we recorded the following information about you: Pulse Respiration Blood pressure Weight 64/minute 18/minute 124/80 184.6 kg Height 1.753 m Marybeth Duran MD 01/29/2018 4:52 PM Signed Chief Complaint Patient presents with: Establish Care HPI Tata Cardenas is a 32 year old male who presents here today for est care. Former pt of Dr. Vincent. Non smoker, has been exposed to second hand smoke. Pt mother was a smoker. Has 1 younger brother, takes medication to prevent blindness. No bowel, GI, or urinary concerns. Does not watch diet or exercise. Pt does drink pop at work, denies drinking much pop at home, mostly water. 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 HTN: does not check BP at home. Denies any chest pains, dizziness, or SOB. Is taking Norvasc 10 mg daily, Losartan 50 mg daily. He takes the HCTZ 25 mg in the morning, but admits that he forgets to take that most days. Depression: feels this is controlled on the Prozac 40 mg daily. COPD with asthma: is taking Breo Ellipta inhaler when he remembers. Always has the albuterol inhaler on hand if needed. Denies needing to use that as often as he had to. He stated he used to take it 2-3 times a week to maybe one a week or not at all. Takes Singulair 10 mg daily and Claritin 10 mg daily. Is not sure what triggers the asthma to flare up, smoke does flare it up and perfumes, air fresheners. Spot on right elbow that he uses Kenalog cream for which helps. Headaches: localized to different locations on the head, only last about 10 minutes then resolve. Very random. Family hx of brain aneurysms: uncle, great aunt, and 2nd cousin, all on mothers side. None in either parent that he is aware of. Mother at 50 years old of CHF and COPD. Hip: left hip soreness and stiffness that has been on going for several months off and on, started after sleeping wrong. Certain activities or movements bring on the pain. He has not been doing anything for the pain. No heat or ice. Does take Naproxen PRN. Past medical history, appointments, medications, allergies reviewed. Previous Medical History PAST MEDICAL HISTORY Diagnosis Date - Allergic rhinitis, cause unspecified Allergic rhinitis - Dysthymic disorder Depression (non-psychotic) - Unspecified asthma(493.90) Previous Surgical History PAST SURGICAL HISTORY Procedure Laterality Date - PAST SURGICAL HISTORY OF ingrown toenail Family History FAMILY HISTORY Problem Relation Age of Onset - Diabetes Maternal Grandmother - Alcohol/Drug Mother - Hypertension Maternal Grandfather - Heart Mother CHF Patient Allergies ALLERGIES Allergen Reactions - Erythromycin GI Upset - Lisinopril Other: See Comments Altered taste - Naproxen (Bulk) Other: See Comments causes nose bleeds Current Medications Current Outpatient Prescriptions on File Prior to Visit: amLODIPine (NORVASC) 10 mg tablet Take 1 tablet by mouth once daily. For BP FLUoxetine HCl (PROZAC) 40 mg capsule Take 1 capsule by mouth once daily. montelukast (SINGULAIR) 10 mg tablet Take 1 tablet by mouth daily at bedtime. losartan (COZAAR) 50 mg tablet Take 1 tablet by mouth once daily. For BP loratadine (CLARITIN) 10 mg tablet Take 1 tablet by mouth once daily. fluticasone-vilanterol (BREO ELLIPTA) 100-25 mcg/dose inhaler Inhale 1 Inhalation as instructed once daily. Blood Pressure Test Kit-Large (QUICK RESPONSE BP MONITOR) kit Large adult cuff. (I10) Essential hypertension, benign hydroCHLOROthiazide (HYDRODIURIL, ESIDRIX) 25 mg tablet Take 1 tablet by mouth once daily. For BP albuterol HFA (VENTOLIN HFA) 90 mcg/actuation inhaler Inhale 2 Puffs as instructed every 4 hours as needed for Wheezing/Shortness of Breath. triamcinolone acetonide (KENALOG) 0.1 % cream Apply 1 application to affected area twice daily. No current facility-administered medications on file prior to visit. Social History Social History Marital status: Single Spouse name: Years of education: Number of children: Social History Main Topics Smoking status: Never Smoker Smokeless status: Never Used Alcohol use: No Drug use: No EXAM: BP 124/80 Pulse 64 Resp 18 Ht 175.3 cm (5' 9ANDquot;) Wt (!) 184.6 kg (407 lb) BMI 60.1 kg/m2 General Appearance: Well appearing, alert, in no acute distress, well-hydrated, well nourished., Morbidly obese. Skin: scaly, inflamed spot on right elbow. Neck: Supple, no adenopathy; thyroid symmetric, normal size Lungs: Lungs clear to auscultation. No wheezing, rhonchi, rales. Heart: RRR without murmur, gallop, or rubs. No ectopy. Health Maintenance List TETANUS due on 1994 INFLUENZA(Season Ended) due on 06/07/2018 Data reviewed None ASSESSMENT/PLAN: 1. Wellness examination - ICD9: V70.0, ICD10: Z00.00 (primary diagnosis) - Recommended regular aerobic exercise. - Discussed need and benefit for weight loss. BMI 60.10 kg/(m2) - Follow up for annual exam in one year. 2. Essential hypertension, benign - ICD9: 401.1, ICD10: I10 - good control - Continue current medication(s) - Recommended regular aerobic exercise. - Recommend home blood pressure monitoring, to bring results in on next visit - Goal of BP ANDlt;140/90 3. Morbid obesity (HCC) - ICD9: 278.01, ICD10: E66.01 Recommend eating healthy and exercise 4. Chronic depression - ICD9: 311, ICD10: F32.9 Continue current medications. 5. Chronic obstructive airway disease with asthma (HCC) - ICD9: 493.20, ICD10: J44.9 Mild intermittent Asthma stable - Continue current meds - Avoidance of triggers recommended Follow up in 6 months. Will call with results of blood work. Marybeth Duran MD The documentation for this note was completed by Dory Velázquez Ma acting as scribe for Marybeth Duran MD. January 28, 2018 4:05 PM. Referring Provider: SELF [[id number]] Allergies As of Date: 01/28/2018 Noted Allergy Reaction ERYTHROMYCIN 2006 8 - GI Upset LISINOPRIL 06/28/2014 14 - Other: See Comments Comments: Altered taste NAPROXEN (BULK) 10/17/2011 14 - Other: See Comments Comments: causes nose bleeds Date Reviewed: 01/28/2018 Reviewed by: Dory Velázquez Ma - Fully Assessed Reason for Visit: Establish Care [42] Primary Visit Diagnosis:Essential hypertension, benign [I10] Other Visit Diagnoses:Morbid obesity (HCC) [E66.01] Chronic depression [F32.9] Chronic obstructive airway disease with asthma (HCC) [J44.9] Order(s):Blood Pressure Test Kit-Large (QUICK RESPONSE BP MONITOR) kitLarge adult cuff. (I10) Essential hypertension, benignDisp: 1 KitRfl: 0 LIPID PANEL BASIC [SQLIPB] Order #: [id number] FUTURE COMP METABOLIC PANEL [SQCMP] Order #: [id number] FUTURE Prescriptions as of 01/28/2018 Sig: BLOOD PRESSURE TEST KIT-LARGE* Large adult cuff. (I10) Esse* AMLODIPINE 10 MG TABLET Take 1 tablet by mouth once d* FLUOXETINE 40 MG CAPSULE Take 1 capsule by mouth once * MONTELUKAST 10 MG TABLET Take 1 tablet by mouth daily * LOSARTAN 50 MG TABLET Take 1 tablet by mouth once d* LORATADINE 10 MG TABLET Take 1 tablet by mouth once d* FLUTICASONE 100 MCG-VILANTERO* Inhale 1 Inhalation as instru* HYDROCHLOROTHIAZIDE 25 MG TAB* Take 1 tablet by mouth once d* ALBUTEROL SULFATE HFA 90 MCG/* Inhale 2 Puffs as instructed * TRIAMCINOLONE ACETONIDE 0.1 %* Apply 1 application to affect* Problem List As Of Date 01/28/2018 Noted Resolved Chronic depression [F32.9] INVALID FOR* Chronic obstructive airway disease with asthma *INVALID FOR* ALLERGIC RHINITIS NOS [J30.9] INVALID FOR* Essential hypertension, benign [I10] INVALID FOR* Morbid obesity [E66.01] INVALID FOR* Prescriptions ordered this encounter Disp Refills Start End BLOOD PRESSURE TEST KIT-LARGE CUFF 1 Kit 0 01/28/2018 Class: Print RX Sig: Large adult cuff. (I10) Essential hypertension, benign Medications Discontinued During This Encounter Blood Pressure Test Kit-Large (QUICK* 1 Kit 0 01/17/2017 01/28/2018 Class: Print RX Sig: Large adult cuff. (I10) Essential hypertension, benign Disc: Reason for discontinue is not on file. Disposition: Return in about 6 months (around 07/30/2018). Follow-up and Disposition History Recorded Encounter Status:Closed by MARYBETH DURAN MD on 01/29/18 PROGRESS Observed: 01/28/2018 Status: COMPLETED Source: [place] 3:56 PM [facility] REPOSITORY HNO ID: [id number] Author: Marybeth Duran Service: (none) Author Type: Physician Type: Progress Notes Filed: 01/29/2018 4:52 PM Note Text: Chief Complaint Patient presents with: Establish Care HPI Tata Cardenas is a 32 year old male who presents here today for est care. Former pt of Dr. Vincent. Non smoker, has been exposed to second hand smoke. Pt mother was a smoker. Has 1 younger brother, takes medication to prevent blindness. No bowel, GI, or urinary concerns. Does not watch diet or exercise. Pt does drink pop at work, denies drinking much pop at home, mostly water. 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 HTN: does not check BP at home. Denies any chest pains, dizziness, or SOB. Is taking Norvasc 10 mg daily, Losartan 50 mg daily. He takes the HCTZ 25 mg in the morning, but admits that he forgets to take that most days. Depression: feels this is controlled on the Prozac 40 mg daily. COPD with asthma: is taking Breo Ellipta inhaler when he remembers. Always has the albuterol inhaler on hand if needed. Denies needing to use that as often as he had to. He stated he used to take it 2-3 times a week to maybe one a week or not at all. Takes Singulair 10 mg daily and Claritin 10 mg daily. Is not sure what triggers the asthma to flare up, smoke does flare it up and perfumes, air fresheners. Spot on right elbow that he uses Kenalog cream for which helps. Headaches: localized to different locations on the head, only last about 10 minutes then resolve. Very random. Family hx of brain aneurysms: uncle, great aunt, and 2nd cousin, all on mothers side. None in either parent that he is aware of. Mother at 50 years old of CHF and COPD. Hip: left hip soreness and stiffness that has been on going for several months off and on, started after sleeping wrong. Certain activities or movements bring on the pain. He has not been doing anything for the pain. No heat or ice. Does take Naproxen PRN. Past medical history, appointments, medications, allergies reviewed. Previous Medical History PAST MEDICAL HISTORY Diagnosis Date - Allergic rhinitis, cause unspecified Allergic rhinitis - Dysthymic disorder Depression (non-psychotic) - Unspecified asthma(493.90) Previous Surgical History PAST SURGICAL HISTORY Procedure Laterality Date - PAST SURGICAL HISTORY OF ingrown toenail Family History FAMILY HISTORY Problem Relation Age of Onset - Diabetes Maternal Grandmother - Alcohol/Drug Mother - Hypertension Maternal Grandfather - Heart Mother CHF Patient Allergies ALLERGIES Allergen Reactions - Erythromycin GI Upset - Lisinopril Other: See Comments Altered taste - Naproxen (Bulk) Other: See Comments causes nose bleeds Current Medications Current Outpatient Prescriptions on File Prior to Visit: amLODIPine (NORVASC) 10 mg tablet Take 1 tablet by mouth once daily. For BP FLUoxetine HCl (PROZAC) 40 mg capsule Take 1 capsule by mouth once daily. montelukast (SINGULAIR) 10 mg tablet Take 1 tablet by mouth daily at bedtime. losartan (COZAAR) 50 mg tablet Take 1 tablet by mouth once daily. For BP loratadine (CLARITIN) 10 mg tablet Take 1 tablet by mouth once daily. fluticasone-vilanterol (BREO ELLIPTA) 100-25 mcg/dose inhaler Inhale 1 Inhalation as instructed once daily. Blood Pressure Test Kit-Large (QUICK RESPONSE BP MONITOR) kit Large adult cuff. (I10) Essential hypertension, benign hydroCHLOROthiazide (HYDRODIURIL, ESIDRIX) 25 mg tablet Take 1 tablet by mouth once daily. For BP albuterol HFA (VENTOLIN HFA) 90 mcg/actuation inhaler Inhale 2 Puffs as instructed every 4 hours as needed for Wheezing/Shortness of Breath. triamcinolone acetonide (KENALOG) 0.1 % cream Apply 1 application to affected area twice daily. No current facility-administered medications on file prior to visit. Social History Social History Marital status: Single Spouse name: Years of education: Number of children: Social History Main Topics Smoking status: Never Smoker Smokeless status: Never Used Alcohol use: No Drug use: No EXAM: BP 124/80 Pulse 64 Resp 18 Ht 175.3 cm (5' 9) Wt (!) 184.6 kg (407 lb) BMI 60.1 kg/m2 General Appearance: Well appearing, alert, in no acute distress, well-hydrated, well nourished., Morbidly obese. Skin: scaly, inflamed spot on right elbow. Neck: Supple, no adenopathy; thyroid symmetric, normal size Lungs: Lungs clear to auscultation. No wheezing, rhonchi, rales. Heart: RRR without murmur, gallop, or rubs. No ectopy. Health Maintenance List TETANUS due on 1994 INFLUENZA(Season Ended) due on 06/07/2018 Data reviewed None ASSESSMENT/PLAN: 1. Wellness examination - ICD9: V70.0, ICD10: Z00.00 (primary diagnosis) - Recommended regular aerobic exercise. - Discussed need and benefit for weight loss. BMI 60.10 kg/(m2) - Follow up for annual exam in one year. 2. Essential hypertension, benign - ICD9: 401.1, ICD10: I10 - good control - Continue current medication(s) - Recommended regular aerobic exercise. - Recommend home blood pressure monitoring, to bring results in on next visit - Goal of BP <140/90 3. Morbid obesity (HCC) - ICD9: 278.01, ICD10: E66.01 Recommend eating healthy and exercise 4. Chronic depression - ICD9: 311, ICD10: F32.9 Continue current medications. 5. Chronic obstructive airway disease with asthma (HCC) - ICD9: 493.20, ICD10: J44.9 Mild intermittent Asthma stable - Continue current meds - Avoidance of triggers recommended Follow up in 6 months. Will call with results of blood work. Marybeth Duran MD The documentation for this note was completed by Dory Velázquez Ma acting as scribe for Marybeth Duran MD. January 28, 2018 4:05 PM. CNPTOUTREACH Observed: 01/14/2018 Status: COMPLETED Source: [place] 12:00 AM [facility] REPOSITORY Patient Outreach ([facility]) TATA CARDENAS ([id number]) 1985 M IPA Date Time Provider Department 01/14/[address] [facility] During your visit today, we recorded the following information about you: Allergies As of Date: 01/14/2018 Noted Allergy Reaction ERYTHROMYCIN 2006 8 - GI Upset LISINOPRIL 06/28/2014 14 - Other: See Comments Comments: Altered taste NAPROXEN (BULK) 10/17/2011 14 - Other: See Comments Comments: causes nose bleeds Date Reviewed: 09/22/2017 Reviewed by: Nusrat Arrington Collection Systems Technician - Fully Assessed Visit Diagnosis:Medication management [Z79.899] Order(s):BASIC METABOLIC PNL [SQBMP] Order #: [id number] FUTURE Prescriptions as of 01/14/2018 Sig: X AMLODIPINE 10 MG TABLET Take 1 tablet by mouth once d* X FLUOXETINE 40 MG CAPSULE Take 1 capsule by mouth once * X MONTELUKAST 10 MG TABLET Take 1 tablet by mouth daily * X LOSARTAN 50 MG TABLET Take 1 tablet by mouth once d* X LORATADINE 10 MG TABLET Take 1 tablet by mouth once d* X FLUTICASONE 100 MCG-VILANTERO* Inhale 1 Inhalation as instru* X BLOOD PRESSURE TEST KIT-LARGE* Large adult cuff. (I10) Esse* X HYDROCHLOROTHIAZIDE 25 MG TAB* Take 1 tablet by mouth once d* X ALBUTEROL SULFATE HFA 90 MCG/* Inhale 2 Puffs as instructed * TRIAMCINOLONE ACETONIDE 0.1 %* Apply 1 application to affect* Problem List As Of Date 01/14/2018 Noted Resolved Chronic depression [F32.9] INVALID FOR* Chronic obstructive airway disease with asthma *INVALID FOR* ALLERGIC RHINITIS NOS [J30.9] INVALID FOR* Essential hypertension, benign [I10] INVALID FOR* Morbid obesity [E66.01] INVALID FOR* Encounter Status:Closed by Tagged, PRODUSER on 07/18/18 ALLERGIES ALLERGIES DATE TYPE / CODE NAME / CODE REACTION SEVERITY SOURCE 08/24/2018 Drug naproxen/[id number] Other Unknown [place] Allergy/416 (RXNORM) Community [id number]([facility] ED [place]) Repository 08/24/2018 Drug erythromycin Upset Stomach Unknown [place] Allergy/416 base/[id number](RXN Community [id number]([facility] ED [place]) Repository 06/28/2014 DRUG LISINOPRIL OTHER: SEE C [facility] INGREDI/[address] [place] [id number](SNOM Repository ED [place]) 10/17/2011 DRUG/[id number] NAPROXEN (BULK) OTHER: SEE C [facility] 003([facility] [place]) Repository 2006 DRUG/[id number] ERYTHROMYCIN GI UPSET [facility] 003([facility] [place]) Repository ENCOUNTERS ENCOUNTERS ADMIT/DISCHARGE ACCOUNT ADMITTING ENCOUNTER LOCATION SOURCE NUMBER CLASS 09/02/2018 [id number] Ambulatory [facility] ing:[facility] Repository 08/24/2018/08/24/20 [id number] Emergency [address] ing:ED Repository 08/24/2018/08/24/20 [id number] Ambulatory [address] Repository 07/30/2018/07/30/20 [id number] Ambulatory [address] Repository 07/30/2018/08/01/20 [id number] Ambulatory [address] Repository 01/28/2018 [id number] Ambulatory [facility] Repository 01/28/2018/01/31/20 [id number] Ambulatory [address] Repository PAYERS PAYERS ENCOUNTER GUARANTOR PAYER SUBSCRIBER SOURCE 09/02/2018 TATA Rodriguez Primary TATA HANSEN E VINE Insurance:CARESOURCEP RONALDDOB: [facility] Number: [id number] [address]Tns: ([phone]) [id number] Repository [phone] () Date:2018-09-02[address]ATTN: [place] [address]VH: 09/02/2018 Secondary NOT GIVENUNK [place] Insurance:SELF PAY [facility] Number: Effective Repository Date:2018-09-02 08/24/2018 TATA Rodriguez Primary TATA THOMAS [facility] [place] [place]: [facility] Number: [id number] [id number]: [phone] [id number] Repository [phone] () Date:2018-08-24[address]ATTN: [place] [address]QX: 08/24/2018 Secondary NOT GIVENDANIELLA Armenta Insurance:SELF PAY [facility] Number: Effective Repository Date:2018-08-24
== END ==
PROVIDERS: Family Provider Family Medicine; PCP Family Medicine; Referring Provider Emergency Medicine; Visit Provider Emergency Medicine
DX: M79.605 Pain in left leg (principal)
CPT/HCPCS: 93971

== ENCOUNTER 2019-12-22 09:22 | Emergency (ER) | payer MEDICAID, SELFPAY ==
[2019-12-22 09:22] VITALS: BP 116/75; PULSE 120; RESP 24; TEMP 38.1; O2SAT 96; BMI 66.2
[2019-12-22 09:34] VITALS: PULSE 122; O2SAT 97
--- NOTE | 2019-12-22 09:42 | ED.VISSUMM ---
- ER Visit Summary Date of Service: 12/22/19 Chief Complaint: Fever History of Present Illness: The patient is a 34 M who presents with fever that began last night. Patient states his fever was up to 102.9 when he woke up today. Patient admits to a slight cough. Patient recently had influenza A. Patient states this resolved approximately 2 weeks ago. Patient admits to some slight shortness of breath. Patient admits to nausea but denies any vomiting. Patient denies any chest pain. Patient admits to general myalgias. Patient also admits to mild headache. Patient states nothing makes his fever better or worse. Patient states he called the nursing line for his insurance and was told to come to the emergency department. Physical Examination: Vital signs are stable except for tachycardia of 122 and a mild tachypnea of 24. Patient is febrile here with a temperature of 100.5. Patient is in no acute distress. Oral mucosa is pink and moist. Oropharynx is clear. Neck is supple. Trachea is midline. There is no JVD. Heart was regular rate and rhythm. Lungs are clear but diminished bilaterally. Abdomen is soft. Bowel sounds are normal. There is no tenderness. Cranial nerves II through XII are intact. There are no focal motor or sensory deficits noted. Test Results: PA and lateral chest x-ray shows a focal infiltrate in the posterior medial segment of the right lower lobe. This was interpreted by the radiologist and reviewed by myself. CBC shows a slight leukocytosis of 12.9. Comprehensive metabolic profile was within normal limits. Emergency Department Course and Treatment: Patient was advised to drink plenty of fluids and get plenty of rest. Patient was instructed to stay home. Patient was given a prescription for Levaquin. Patient was instructed to follow-up with his primary care physician in 5 to 7 days. Patient understood and was agreeable with the plan. All questions were answered. Disposition: Discharge home Impression: Pneumonia This note was generated with [employer] dictation software. It may contain incorrect words, spelling, and punctuation that were not noted in review of the chart prior to signing ED Disposition - Plan for ED Patient: Disposition: Home or Assisted Living Diagnosis: Pneumonia Instructions: PNEUMONIA (Adult) Prescriptions: Levofloxacin [Levaquin] 750 mg PO DAILY #6 tab Prescription Printed Referrals: Evin Ann MD [Primary Care Provider] - 5-7 Days
[2019-12-22] MEDS: 0.9% Normal Saline 1,000 ML 1000 ML IV (09:53)
[2019-12-22] MEDS: Acetaminophen 500 MG Tablet 1000 MG PO (09:53)
[2019-12-22 10:06] LABS: Absolute Lymphocyte Count 1.06 X10^3/uL (0.83-4.51); Absolute Neutrophil Count 10.9 X10^3/uL (2.0-7.7); Basophil# 0.03 X10^3/uL; Basophil% 0.2 % (0-1); Eosinophil# 0.05 X10^3/uL; Eosinophils% 0.4 % (0-5); Hematocrit 37.3 % (40-54); Hemoglobin 11.7 g/dL (13.0-16.5); Lymphocyte # 1.06 X10^3/ul (4.0); Lymphocyte % 8.2 % (19-41); Mean Corp Hgb Conc 31.4 g/dL (32-36); Mean Corpuscular Hgb 26.1 pg (27.0-32.0); Mean Corpuscular Volume 83.3 fL (80-94); Monocyte# 0.77 X10^3/uL; NRBC Flagged by Analyzer 0 % (0-5); Neutrophil % 84.4 % (47-70); Platelet Count 212 K/mm3 (150-450); RBC Distribution Width CV 15.6 % (11.6-14.6); RBC Distribution Width SD 47.2 fl (35.1-43.9); Red Blood Count 4.48 M/mm3 (4.6-6.2); White Blood Count 12.9 K/mm3 (4.4-11.0)
--- NOTE | 2019-12-22 10:10 | RAD_ITS ---
STUDY: X-RAY CHEST REASON FOR EXAM: Male, 34 years old. FEVER, SOB, DX W/ INFLUENZA FEW WKS AGO TECHNIQUE: PA and lateral views of the chest. COMPARISON: None. FINDINGS: Focal infiltrate in the posterior medial segment of the right lower lobe. Scattered calcified granulomas. There is no demonstrated pleural abnormality. Normal size heart. Normal mediastinum and minnie. Normal visualized pulmonary arteries. Normal visualized aortic arch and descending thoracic aorta. Normal visualized thoracic spine. Normal visualized ribs, clavicles, and shoulders. There is no demonstrated abnormality of the visualized soft tissue structures of the upper abdomen. RAD/Chest PA and Lateral IMPRESSION: Focal infiltrate in the posterior medial segment of the right lower lobe. Electronically Signed: Vidal Guadalupe, at 10:39 EDT , Service support ,
[2019-12-22 10:26] LABS: ALB/GLOB Ratio 0.9 RATIO (0.9-2.4); AST(SGOT) 18 U/L (15-37); Alanine Aminotransfer ALT/SGPT 33 U/L (16-61); Albumin, Serum 3.2 g/dL (3.2-5.0); Alkaline Phosphatase 87 U/L (45-117); Anion Gap 7 (5-15); BUN 8 mg/dL (7-18); BUN/Creat Ratio 7.6 RATIO (10-20); Calcium,Total 8.7 mg/dL (8.5-10.1); Chloride 102 mmol/L (98-107); Creatinine, Serum 1.05 mg/dL (0.70-1.30); EST Glomerular Filtration Rate 85 mL/min (>60); Est Glom Filt Rate - Afr Amer 103 mL/min (>60); Estimated Creatinine Clearance 100.42 ml/min; Globulin 3.7 g/dL (2.2-4.2); Glucose 146 mg/dL (74-106); Potassium 3.3 mmol/L (3.5-5.1); Protein, Total 6.9 g/dL (6.4-8.2); Sodium Level 138 mmol/L (136-145)
[2019-12-22 11:15] VITALS: BP 126/77; PULSE 108; RESP 16; TEMP 37.4; O2SAT 94
[2019-12-22] MEDS: levoFLOXacin 750 MG Tablet PO (11:18)
== END 2019-12-22 11:26 | disposition home or self-care (01) ==
PROVIDERS: Emergency Provider Emergency Medicine; PCP Family Medicine
DX: J18.9 Pneumonia, unspecified organism (principal)
CPT/HCPCS: 71046; 80053; 85025; 96360; 99284; J7030; A4216

== ENCOUNTER 2021-08-04 09:22 | Outpatient (CLI) | payer MEDICAID, SELFPAY ==
[2021-08-04] MEDS: 0.9% Saline Lock 10 ML Syringe IV (09:35)
[2021-08-04 09:41] VITALS: BP 139/77; PULSE 92; RESP 16; TEMP 36.7; O2SAT 100; BMI 62.7
--- NOTE | 2021-08-04 10:19 | NURSING ---
PT C/O OF LOWER BACK PAIN THAT IS MOVING TO UPPER BACK PAIN. PT VERY ANXIOUS AT THIS TIME. RECLINED BACK IN CHAIR. ENCOURAGED TO CALM DOWN. PULSE OX 100%. RESP 22 FROM ANXIETY. AFTER 5 MIN PT STATES PAIN IS MUCH LESS. PULSE OX STILL 100%.
[2021-08-04 10:20] VITALS: BP 140/95; PULSE 92; RESP 18; O2SAT 100
[2021-08-04 10:34] VITALS: BP 147/73; PULSE 94; RESP 16; TEMP 36.9; O2SAT 100
[2021-08-04 11:26] VITALS: BP 157/71; PULSE 91; RESP 20; TEMP 36.9; O2SAT 98
== END 2021-08-04 11:35 | disposition home or self-care (01) ==
LOC: MS3OUT 09:23 → MS3 09:23
PROVIDERS: PCP Family Medicine; Referring Provider Nurse Practitioner Adult Health; Visit Provider Nurse Practitioner Adult Health
DX: Z23 Encounter for immunization (principal); U07.1 COVID-19
CPT/HCPCS: J7050; M0245; Q0245; A4216

== ENCOUNTER 2022-07-04 12:07 | Emergency (ER) | payer MEDICAID, SELFPAY ==
[2022-07-04 12:09] VITALS: BP 160/91; PULSE 112; RESP 18; TEMP 36; O2SAT 96; BMI 70.1
--- NOTE | 2022-07-04 12:31 | EDS_ITS ---
HPI History of Present Illness Chief Complaint: Cellulitis Informant: patient Onset/Context/Timing Onset: Days (2) Context: Sudden Onset Timing: Continuous Quality: Aching Location: Left lower leg Worsened by: Palpation Relieved by: Nothing Narrative Narrative: Patient presents with redness to his left lower leg that began 2 days ago. Patient states it began rather suddenly. Patient states he woke up with pain and then noticed some redness in his left lower leg. Patient states it is worse whenever he touches the area. Patient states he had a fever of 102 at home 2 days ago. Patient denies any discharge or drainage. Patient admits to some nausea but denies any vomiting. Patient states he went to an urgent care prior to the emergency department but was told he needed to come to the emergency department to get lab work drawn. [facility] Medical History (Updated 07/04/22 @ 14:[address] Camilo Gaspar DO) Asthma Depression Hypertension Home Medications acetaminophen 500 mg tablet 500 mg PO Q6H PRN PRN PAIN/FEVER 08/04/21 [History Last Taken Unknown] albuterol sulfate 90 mcg/actuation aerosol inhaler 1 - 2 puff inhalation Q4H PRN PRN Shortness Of Breath 08/04/21 [History Last Taken Unknown] fluoxetine 40 mg capsule 40 mg PO DAILY 08/04/21 [History Last Taken Unknown] hydrochlorothiazide 25 mg tablet 25 mg PO DAILY PRN PRN Blood Pressure 08/04/21 [History Last Taken Unknown] loratadine 10 mg tablet 10 mg PO DAILY 08/04/21 [History Last Taken Unknown] losartan 50 mg tablet 50 mg PO DAILY 08/04/21 [History Last Taken Unknown] montelukast 10 mg tablet 10 mg PO DAILY 08/04/21 [History Last Taken Unknown] cephalexin 500 mg capsule 500 mg PO Q6 #40 CAPSULES 07/04/22 [Rx Last Taken Unknown] Allergy/AdvReac Type Severity Reaction Status Date / Time erythromycin base Allergy Upset Verified 07/04/22 12:08 Stomach naproxen AdvReac Other Verified 07/04/22 12:08 Surgical History no surgical history no surgical history Social History Smoking Status: Never smoker ROS ROS ED Constitutional Constitutional ED: Reports fever(s); Denies chills Eyes Eyes: Denies blurry vision or change in vision ENT ENT ED: Reports rhinorrhea; Denies sore throat Cardiovascular Cardiovascular: Denies chest pain or palpitations Respiratory/Chest Respiratory/Chest: Reports dyspnea; Denies cough Gastrointestinal Gastrointestinal: Reports nausea; Denies vomiting Genitourinary Genitourinary ED: Denies dysuria or hematuria Musculoskeletal Musculoskeletal: Reports back pain; Denies neck pain Integumentary Reports rash; Denies abscess Neurologic Neurologic: Reports headache(s); Denies weakness Allergic/Immunologic Allergic/Immunologic ED: Denies mouth swelling or urticaria EXAM Physical Exam Const Vital Signs: 07/04/22 12:09 07/04/22 14:00 Temperature 96.8 F L 99.3 F H Temperature Source Temporal Temporal Pulse Rate 112 H 103 H Respiratory Rate 18 22 H Blood Pressure 160/91 H 160/90 H Blood Pressure Mean 114 113 Pulse Ox 96 96 Oxygen Delivery Method Room Air Room Air Positive well nourished, well developed and obese General Appearance ED: well developed and NAD Nutritional Appearance: obese HEENT Reports moist mucous membranes Resp normal respiratory effort and clear to auscultation bilaterally Cardio regular rate and regular rhythm GI normal to inspection, nondistended, normoactive bowel sounds and non-tender Palpation: soft Extremity Extremity Narrative: There is tenderness, erythema, and warmth over the left lower leg. There is no discharge or drainage. There is no evidence of any abscess. General Extremety ED: Yes edema and tenderness General Extremity: edema Neuro oriented x3, CN's II-XII intact bilaterally and no sensory deficits noted Sensorium / Orientation: alert Motor Exam: strength 5/5 throughout Psych mental status grossly normal MDM MDM MDM Narrative Medical decision making narrative: Venous duplex was obtained. There is no evidence of DVT. CBC shows a mild leukocytosis of 14.1. Hemoglobin was 12.6 and hematocrit was 41.2. Platelets were normal. PT was INR and PTT were within normal limits. Comprehensive metabolic profile was within normal limits. Lactate was normal. Patient was given a dose of Ancef here. Patient was given a prescription for Keflex. Patient was instructed to keep the leg elevated. Patient was instructed to follow-up with his primary care physician in 5 to 7 days. Patient understood and was agreeable with the plan. All questions were answered. Lab Data Attestation: I reviewed the patient's lab results. Labs: Laboratory Results - last 24 hr 07/04/22 07/04/22 07/04/22 12:48 12:48 12:48 WBC 14.1 H RBC 4.85 Hgb 12.6 L Hct 41.2 MCV 84.9 MCH 26.0 L MCHC 30.6 L RDW Std Deviation 45.9 H RDW Coeff of Gaby 14.8 H Plt Count 239 MPV 10.2 Immature Gran % (Auto) 0.600 Neut % (Auto) 75.7 H Lymph % (Auto) 12.8 L [place] % (Auto) 8.2 Eos % (Auto) 2.4 Baso % (Auto) 0.3 Absolute Neuts (auto) 10.7 H Absolute Lymphs (auto) 1.81 Nucleated RBC % 0 PT 13.6 INR 1.1 APTT 31.2 Sodium 141 Potassium 4.3 Chloride 108 H Carbon Dioxide 27.0 Anion Gap 6 BUN 14 Creatinine 0.85 Estim Creat Clear Calc 117.83 Est GFR (MDRD) Af Amer 130 Est GFR (MDRD) Non-Af 107 BUN/Creatinine Ratio 16.5 Glucose 124 H Lactic Acid Calcium 8.7 Total Bilirubin 0.40 AST 18 ALT 30 Alkaline Phosphatase 95 Total Protein 7.6 Albumin 3.3 Globulin 4.3 H Albumin/Globulin Ratio 0.8 L 07/04/22 12:48 WBC RBC Hgb Hct MCV MCH MCHC RDW Std Deviation RDW Coeff of Gaby Plt Count MPV Immature Gran % (Auto) Neut % (Auto) Lymph % (Auto) [place] % (Auto) Eos % (Auto) Baso % (Auto) Absolute Neuts (auto) Absolute Lymphs (auto) Nucleated RBC % PT INR APTT Sodium Potassium Chloride Carbon Dioxide Anion Gap BUN Creatinine Estim Creat Clear Calc Est GFR (MDRD) Af Amer Est GFR (MDRD) Non-Af BUN/Creatinine Ratio Glucose Lactic Acid 1.1 Calcium Total Bilirubin AST ALT Alkaline Phosphatase Total Protein Albumin Globulin Albumin/Globulin Ratio Discharge Plan Triage Chief Complaint: Cellulitis ED Provider: Camilo Gaspar Dx/Rx/DC Orders Clinical Impression: Cellulitis of left lower leg, Morbid obesity with BMI of 70 and over, adult Instructions: ED Cellulitis Prescriptions: New cephalexin [cephalexin] 500 mg capsule 500 mg PO Q6 Qty: 40 0RF No Action losartan 50 mg tablet 50 mg PO DAILY fluoxetine 40 mg capsule 40 mg PO DAILY acetaminophen 500 mg tablet 500 mg PO Q6H PRN PRN (Reason: PAIN/FEVER) montelukast 10 mg tablet 10 mg PO DAILY hydrochlorothiazide 25 mg tablet 25 mg PO DAILY PRN PRN (Reason: Blood Pressure) albuterol sulfate 90 mcg/actuation HFA aerosol inhaler 1 - 2 puff INHALATION Q4H PRN PRN (Reason: Shortness Of Breath) loratadine 10 mg tablet 10 mg PO DAILY Primary Care Provider: Evin Ann Referrals: Evin Ann MD [Primary Care Provider] - 5-7 Days Disposition Disposition: Home, Self Care
--- NOTE | 2022-07-04 12:37 | VDLE_ITS ---
Reason For Study: Pain Procedure LEFT This is a venous duplex using B-mode, color GSV is normal. flow and spectral Doppler. CFV is compressible, spontaneous, phasic, Exam performed portable in ED. competent, and demonstrates normal The study was technically difficult. augmentation. A preliminary report was called and/or faxed FV is compressible, spontaneous, phasic, to Chasity. competent and demonstrates normal augmentation. POP V is compressible, spontaneous, phasic, competent and demonstrates normal augmentation. T/P Trunk is compressible. PTV is compressible. LT PerV is compressible. VL/Venous Duplex US, Unilateral Interpretation Summary Deep veins of the left lower extremity are patent and compressible segmentally. There is no evidence of left lower extremity deep vein thrombosis. The left great saphenous vein colleen ears patent and compressible segmentally. Ordering Physician: Camilo Gaspar Referring Physician: MD Marissa Evin Performed By: Patrizia Khan RVT
[2022-07-04] MEDS: Cefazolin 1 GM/50 ML BAG IV (12:56)
[2022-07-04 12:59] LABS: Absolute Lymphocyte Count 1.81 X10^3/uL (0.83-4.51); Absolute Neutrophil Count 10.7 X10^3/uL (2.0-7.7); Basophil# 0.04 X10^3/uL; Basophil% 0.3 % (0-1); Eosinophil# 0.34 X10^3/uL; Eosinophils% 2.4 % (0-5); Hematocrit 41.2 % (40-54); Hemoglobin 12.6 g/dL (13.0-16.5); Lymphocyte # 1.81 X10^3/ul (0.83-4.51); Lymphocyte % 12.8 % (19-41); Mean Corp Hgb Conc 30.6 g/dL (32-36); Mean Corpuscular Volume 84.9 fL (80-94); Mean Platelet Vol. 10.2 fl (6.2-12.0); Monocyte# 1.16 X10^3/uL; Monocyte% 8.2 % (0-10); NRBC Flagged by Analyzer 0 % (0-5); Neutrophil # 10.65 X10^3/uL (2.7-7.7); Neutrophil % 75.7 % (47-70); Platelet Count 239 K/mm3 (150-450); RBC Distribution Width CV 14.8 % (11.6-14.6); RBC Distribution Width SD 45.9 fl (35.1-43.9); Red Blood Count 4.85 M/mm3 (4.6-6.2); White Blood Count 14.1 K/mm3 (4.4-11.0)
[2022-07-04 13:09] LABS: International Normalized Ratio 1.1; Prothrombin Time (Protime)PT. 13.6 SECONDS (11.7-14.9)
[2022-07-04 13:10] LABS: Partial Thromboplast Time 31.2 Seconds (24.1-36.2)
[2022-07-04 13:17] LABS: ALB/GLOB Ratio 0.8 RATIO (0.9-2.4); AST(SGOT) 18 U/L (15-37); Alanine Aminotransfer ALT/SGPT 30 U/L (16-61); Albumin, Serum 3.3 g/dL (3.2-5.0); Alkaline Phosphatase 95 U/L (45-117); Anion Gap 6 (5-15); BUN 14 mg/dL (7-18); BUN/Creat Ratio 16.5 RATIO (10-20); Calcium,Total 8.7 mg/dL (8.5-10.1); Chloride 108 mmol/L (98-107); Creatinine, Serum 0.85 mg/dL (0.70-1.30); EST Glomerular Filtration Rate 107 mL/min (>60); Est Glom Filt Rate - Afr Amer 130 mL/min (>60); Estimated Creatinine Clearance 117.83 ml/min; Globulin 4.3 g/dL (2.2-4.2); Glucose 124 mg/dL (74-106); Potassium 4.3 mmol/L (3.5-5.1); Protein, Total 7.6 g/dL (6.4-8.2); Sodium Level 141 mmol/L (136-145)
[2022-07-04 13:26] LABS: Lactic Acid 1.1 mmol/L (0.4-1.9)
[2022-07-04 14:00] VITALS: BP 160/90; PULSE 103; RESP 22; TEMP 37.4; O2SAT 96
[2022-07-04 15:12] VITALS: BP 125/71; PULSE 99; RESP 20; O2SAT 96
== END 2022-07-04 15:13 | disposition home or self-care (01) ==
PROVIDERS: Emergency Provider Emergency Medicine; PCP Family Medicine; Visit Provider Emergency Medicine
DX: L03.116 Cellulitis of left lower limb (principal); E66.01 Morbid (severe) obesity due to excess calories; Z68.45 Body mass index [BMI] 70 or greater, adult; I10 Essential (primary) hypertension; R11.0 Nausea; J45.909 Unspecified asthma, uncomplicated; F32.A Depression, unspecified; Z79.899 Other long term (current) drug therapy; M79.662 Pain in left lower leg
CPT/HCPCS: 80053; 83605; 85025; 85610; 85730; 87040; 87149; 93971; 96365; 99283; J7050; A4216

== ENCOUNTER → 2022-12-03 | Outpatient (CLI) | payer MEDICAID, SELFPAY | END | disposition home or self-care (01) | LOC: SL 20:14 | PROVIDERS: PCP Family Medicine; Visit Provider Nurse Practitioner Family | DX: R06.83 Snoring (principal); R48.0 Dyslexia and alexia; R06.81 Apnea, not elsewhere classified | CPT/HCPCS: 95810 ==

== ENCOUNTER → 2023-01-02 | Outpatient (CLI) | payer MEDICAID, SELFPAY | END | disposition home or self-care (01) | LOC: SL 20:11 | PROVIDERS: PCP Family Medicine; Referring Provider Nurse Practitioner Family; Visit Provider Nurse Practitioner Family | DX: G47.33 Obstructive sleep apnea (adult) (pediatric) (principal) | CPT/HCPCS: 95811 ==

== ENCOUNTER 2024-09-05 14:49 | Emergency (ER) | payer MEDICAID, SELFPAY ==
[2024-09-05 14:51] VITALS: BP 143/60; PULSE 104; RESP 20; TEMP 36.5; O2SAT 98
--- NOTE | 2024-09-05 15:06 | EKG12_ITS ---
Test Reason : Blood Pressure : */* mmHG Vent. Rate : 100 BPM Atrial Rate : 100 BPM P-R Int : 150 ms QRS Dur : 84 ms QT Int : 338 ms P-R-T Axes : 45 -6 12 degrees QTcB Int : 436 ms Normal sinus rhythm Septal infarct , age undetermined Abnormal ECG Confirmed by Donnell Vivas ([id number]), make up editor SRUTHI JOSE ([id number]) on 09/07/2024 11:36:50 AM Referred By: Rao Diaz Confirmed By: Donnell Vivas
--- NOTE | 2024-09-05 15:09 | EDS_ITS ---
HPI <PHYLLIS Glass - Last Filed: 09/05/24 17:24> History of Present Illness Chief Complaint: Upper Extremity Injury Narrative Narrative: Patient presenting today due to left arm pain that started this morning when waking up. He is unsure if he slept on his arm wrong, he denies any injury to his arm. He denies any pain in his chest or shortness of breath. His pain does not necessarily worsen with range of motion of his left arm, he denies any neck pain or neck injury. He reports that the pain is primarily to the left shoulder that radiates down to the left wrist, the pain is constant and waxing and waning. He took Tylenol with no relief. He denies any significant cardiac history. He does have a PMH of obesity, hypertension, COPD, and asthma. PFSH <PHYLLIS Glass - Last Filed: 09/05/24 17:24> PFSH Medical History Depression Asthma Hypertension Home Medications ?Medication ?Instructions ?Recorded ?Last Taken ?Type acetaminophen 500 mg tablet 500 mg PO Q6H PRN PRN PAIN/FEVER 08/04/21 Unknown History albuterol sulfate 90 mcg/actuation 1 - 2 puff inhalation Q4H PRN PRN 08/04/21 Unknown History aerosol inhaler Shortness Of Breath fluoxetine 40 mg capsule 40 mg PO DAILY 08/04/21 Unknown History hydrochlorothiazide 25 mg tablet 25 mg PO DAILY PRN PRN Blood 08/04/21 Unknown History Pressure loratadine 10 mg tablet 10 mg PO DAILY 08/04/21 Unknown History losartan 50 mg tablet 50 mg PO DAILY 08/04/21 Unknown History montelukast 10 mg tablet 10 mg PO DAILY 08/04/21 Unknown History cephalexin 500 mg capsule 500 mg PO Q6 #40 CAPSULES 07/04/22 Unknown Rx gabapentin 300 mg capsule 300 mg PO QHS #14 caps 09/05/24 Unknown Rx Allergy/AdvReac Type Severity Reaction Status Date / Time erythromycin base Allergy Upset Verified 09/05/24 14:51 Stomach naproxen AdvReac Other Verified 09/05/24 14:51 Social History Smoking Status: Never smoker ROS <PHYLLIS Glass - Last Filed: 09/05/24 17:24> ROS ED Constitutional Constitutional ED: Denies chills or fever(s) Cardiovascular Cardiovascular: Denies chest pain Respiratory/Chest Respiratory/Chest: Denies cough or dyspnea Gastrointestinal Gastrointestinal: Denies abdominal pain, nausea or vomiting Musculoskeletal Musculoskeletal: Reports myalgias; Denies neck pain Integumentary Denies rash Neurologic Neurologic: Denies paresthesias or weakness EXAM <PHYLLIS Glass - Last Filed: 09/05/24 17:24> Physical Exam Const Vital Signs: 09/05/24 14:51 Temperature 97.7 F L Temperature Source Temporal Pulse Rate 104 H Respiratory Rate 20 H Blood Pressure 143/60 H Blood Pressure Mean 87 Pulse Ox 98 Oxygen Delivery Method Room Air Positive well nourished, well developed and no apparent distress General Appearance ED: well developed HEENT Reports normocephalic and head/scalp atraumatic Mouth ED: Yes moist mucous membranes normal Eyes PERRL and EOMs intact bilaterally Neck full ROM and supple Chest Wall inspection of chest normal Resp normal respiratory effort and clear to auscultation bilaterally Cardio regular rate and regular rhythm GI soft to palpation, non-tender, non-distended and no masses Back/Spine normal ROM and normal to inspection Extremity normal to inspection and full ROM Extremity Narrative: Left radial pulse 2+, good cap refill, sensation intact. Forearm to the left upper extremity, minimal pain to palpation to the anterior aspect of the left shoulder. Neuro oriented x3, CN's II-XII intact bilaterally, moves all extremities, no focal motor deficits and no sensory deficits noted Sensorium / Orientation: awake and alert Psych mental status grossly normal and thought process normal Skin no rashes or lesions noted and no wounds MDM <PHYLLIS Glass - Last Filed: 09/05/24 17:24> [facility] Narrative Medical decision making narrative: Patient presenting today with left arm pain [place] dismounting when he woke up. No injury occurred to cause this pain. He does have some pain to palpation to the anterior aspect of the left shoulder but otherwise I am unable to have him reproduce the pain. Therefore, cardiac workup obtained. No injury of the left arm to indicate need for imaging. Left arm is neurovascularly intact. Patient CBC, BMP, troponin are unremarkable. CT chest x-ray negative for cardiopulmonary abnormality and was reviewed by the attending ED physician. Given his negative troponin, low suspicion that this is cardiac in nature. We will treat him for cervical radiculopathy. He was given gabapentin here for pain and will be given a prescription for this for home. I did recommend that he follow closely with his PCP. He will be discharged home in stable condition. A work note for today was given. Interventions / MDM: Differential diagnosis: Diagnosis considered but do not suspect: N/A My EKG interpretation: Sinus rate of 100, no ST changes. Isolated T wave version leads III. Nonspecific. Imaging independently reviewed and interpreted by myself: N/A External documents reviewed: N/A Test considered but not ordered:N/A ED course: Attending note: I have personally performed a face to face assessment of the patient and have reviewed the RUTHY note. I personally made/approved the management plan and take responsibility for the patient management. I performed a substantive portion of the visit including all aspects of the following. My hernandez findings include: Awaken at noon today noting pain left shoulder rating down to his dorsal forearm. Denies neck pain. Denies shoulder [place] pain. Denies chest pains. Denies history of similar. Is right-hand dominant. History of hypertension recent diagnosed diabetes asthma COPD. No family history MIs at young age. Denies tobacco. Denies weakness. Exam Spurling's negative soft compartments left upper extremity. Full range of motion. 5 out of 5 strength of the upper extremities. EKG nonspecific T wave inversions. Cardiac workup for further evaluation. Re-evaluation: stable Disposition discussed with patient/family/significant other: Case discussed with consulting clinician: N/A This note was generated with [employer] dictation software. It may contain incorrect words, spelling, and punctuation that were not noted in checking the note before signing. <Dr. Rao Diaz, DO - Last Filed: 09/05/24 23:30> [facility] Narrative Medical decision making narrative: Patient presenting today with left arm pain [place] dismounting when he woke up. No injury occurred to cause this pain. He does have some pain to palpation to the anterior aspect of the left shoulder but otherwise I am unable to have him reproduce the pain. Therefore, cardiac workup obtained. No injury of the left arm to indicate need for imaging. Left arm is neurovascularly intact. Patient CBC, BMP, troponin are unremarkable. CT chest x-ray negative for cardiopulmonary abnormality and was reviewed by the attending ED physician. Given his negative troponin, low suspicion that this is cardiac in nature. We will treat him for cervical radiculopathy. He was given gabapentin here for pain and will be given a prescription for this for home. I did recommend that he follow closely with his PCP. He will be discharged home in stable condition. A work note for today was given. Interventions / MDM: Differential diagnosis: Cervical radicular pain. Diagnosis considered but do not suspect: ACS however EKG cardiac enzyme negative. No signs of compartment syndrome. My EKG interpretation: Sinus rate of 100, no ST changes. Isolated T wave version leads III. Nonspecific. Imaging independently reviewed and interpreted by myself: 2 view chest x-ray: No acute process also read by radiology. External documents reviewed: N/A Test considered but not ordered:N/A ED course: Attending note: I have personally performed a face to face assessment of the patient and have reviewed the RUTHY note. I personally made/approved the management plan and take responsibility for the patient management. I performed a substantive portion of the visit including all aspects of the following. My hernandez findings include: Awaken at noon today noting pain left shoulder rating down to his dorsal forearm. Denies neck pain. Denies shoulder [place] pain. Denies chest pains. Denies history of similar. Is right-hand dominant. History of hypertension recent diagnosed diabetes asthma COPD. No family history MIs at young age. Denies tobacco. Denies weakness. Exam Spurling's negative soft compartments left upper extremity. Full range of motion. 5 out of 5 strength of the upper extremities. EKG nonspecific T wave inversions. Cardiac workup for further evaluation. Cardiac workup negative. Troponin less than 3 negative per algorithm. Re-evaluation: stable Disposition discussed with patient/family/significant other: Patient Case discussed with consulting clinician: N/A This note was generated with [employer] dictation software. It may contain incorrect words, spelling, and punctuation that were not noted in checking the note before signing. Discharge Plan Triage Chief Complaint: Upper Extremity Injury ED Midlevel Provider: Shahnaz Alexandre ED Provider: Rao Diaz Dx/Rx/DC Orders Clinical Impression: Radicular pain in left arm, Arm pain, left Instructions: ED Radiculopathy, Cervical Prescriptions: New gabapentin 300 mg capsule 300 mg PO QHS Qty: 14 0RF No Action losartan 50 mg tablet 50 mg PO DAILY fluoxetine 40 mg capsule 40 mg PO DAILY acetaminophen 500 mg tablet 500 mg PO Q6H PRN PRN (Reason: PAIN/FEVER) montelukast 10 mg tablet 10 mg PO DAILY hydrochlorothiazide 25 mg tablet 25 mg PO DAILY PRN PRN (Reason: Blood Pressure) albuterol sulfate 90 mcg/actuation HFA aerosol inhaler 1 - 2 puff INHALATION Q4H PRN PRN (Reason: Shortness Of Breath) loratadine 10 mg tablet 10 mg PO DAILY cephalexin [cephalexin] 500 mg capsule 500 mg PO Q6 Qty: 40 0RF Stand Alone Forms: ED Work / School Excuse Primary Care Provider: Evin Ann Referrals: Evin Ann MD [Primary Care Provider] - 1-2 Weeks Activity Restrictions/Additional Instructions: Your cardiac workup is negative. Symptoms are concerning for radicular pain. Neck. primary C7 nerve root continue gabapentin as prescribed. Follow-up with your doctor.. Print Language: Burundian Disposition Disposition: Home, Self Care Discharge Date/Time: 09/05/24 16:51
--- NOTE | 2024-09-05 15:30 | RAD_ITS ---
STUDY: X-RAY CHEST REASON FOR EXAM: Male, 38 years old. chest pain TECHNIQUE: PA and lateral views of the chest. COMPARISON: December 22, 2019 FINDINGS: The lungs are clear and expanded. There is no demonstrated pleural abnormality. Normal size heart. Normal mediastinum and minnie. Normal visualized pulmonary arteries. Normal visualized aortic arch and descending thoracic aorta. There are diffuse degenerative changes of the visualized thoracic spine. Normal visualized ribs, clavicles, and shoulders. There is no demonstrated abnormality of the visualized soft tissue structures of the upper abdomen. RAD/Chest PA and Lateral IMPRESSION: Degenerative changes, as described above. No demonstrated acute cardiopulmonary process. Electronically Signed: Frank Zavala MD at 16:[address] [facility] ,
[2024-09-05 15:34] LABS: Absolute Neutrophil Count 6.6 X10^3/uL (2.0-7.7); Basophil# 0.03 X10^3/uL; Basophil% 0.3 % (0-1); Eosinophil# 0.41 X10^3/uL; Eosinophils% 4.3 % (0-5); Hematocrit 41.2 % (40-54); Hemoglobin 13.3 g/dL (13.0-16.5); Lymphocyte % 17.9 % (19-41); Mean Corp Hgb Conc 32.3 g/dL (32-36); Mean Corpuscular Hgb 26.7 pg (27.0-32.0); Mean Corpuscular Volume 82.6 fL (80-94); Monocyte# 0.69 X10^3/uL; Monocyte% 7.3 % (0-10); NRBC Flagged by Analyzer 0 % (0-5); Neutrophil % 69.6 % (47-70); Platelet Count 263 K/mm3 (150-450); RBC Distribution Width CV 15.1 % (11.6-14.6); RBC Distribution Width SD 45.5 fl (35.1-43.9); Red Blood Count 4.99 M/mm3 (4.6-6.2); White Blood Count 9.5 K/mm3 (4.4-11.0)
[2024-09-05 15:51] LABS: Anion Gap 5 (5-15); BUN 14 mg/dL (7-18); BUN/Creat Ratio 17.2 RATIO (10-20); Calcium,Total 8.8 mg/dL (8.5-10.1); Chloride 106 mmol/L (98-107); Creatinine, Serum 0.81 mg/dL (0.70-1.30); EST Glomerular Filtration Rate 111 mL/min (>60); Est Glom Filt Rate - Afr Amer 135 mL/min (>60); Glucose 122 mg/dL (74-106); Potassium 3.9 mmol/L (3.5-5.1); Sodium Level 139 mmol/L (136-145); Troponin-I HS < 3 pg/mL (3.0-78.0)
[2024-09-05 16:44] VITALS: BP 135/74; PULSE 74; RESP 17; TEMP 36.4; O2SAT 95
[2024-09-05] MEDS: Gabapentin 300 MG Capsule PO (16:48)
== END 2024-09-05 16:51 | disposition home or self-care (01) ==
PROVIDERS: Physician Assistant; Emergency Provider Emergency Medicine; PCP Family Medicine; Referring Provider Emergency Medicine; Visit Provider Emergency Medicine
DX: M79.602 Pain in left arm (principal); M54.10 Radiculopathy, site unspecified; M25.532 Pain in left wrist; M25.512 Pain in left shoulder; J45.909 Unspecified asthma, uncomplicated; I10 Essential (primary) hypertension; F32.A Depression, unspecified
CPT/HCPCS: 71046; 80048; 84484; 85025; 93005; 99284; A4216

== ENCOUNTER → 2024-10-21 | Outpatient (CLI) | payer MEDICAID, SELFPAY ==
--- NOTE | 2024-10-21 14:26 | NEURO_ITS ---
NCS and/or EMG Patient Report Ordering Doctor: Yazmin Arzola DATE OF SERVICE: 10/21/24 Donnell presents for electrodiagnostic testing of the left upper limb. He reports numbness and tingling the left hand. Electrodiagnostic findings: Left median motor nerve demonstrates prolonged latency with normal amplitude and reduced conduction velocity. Left ulnar motor response is within normal limits. Normal left median and ulnar F?waves. Prolonged left median sensory latency at the wrist. Needle EMG testing was p erformed the left upper limb. All muscles tested showed no evidence of denervation with normal motor unit action potentials. Electrodiagnostic impression: This is an abnormal study in the left upper limb 1. Electrodiagnostic findings suggestive of a left-sided median mononeuropathy. This consistent with a mild left carpal tunnel syndrome. Multi Select Codes Neurology Neurology Interp Codes: 69734-96 Musc test done w/n test comp (interp) and 46855-75 Nrv cndj tst 5-6 studies (interp)
== END | disposition home or self-care (01) ==
LOC: PSN 13:37
PROVIDERS: PCP Family Medicine; Referring Provider Nurse Practitioner Family; Visit Provider Nurse Practitioner Family
DX: M54.12 Radiculopathy, cervical region (principal)
CPT/HCPCS: 95886; 95909